=== PATIENT | female | born 1990 | race Two or more races ===

== ENCOUNTER 2021-01-25 23:04 | Emergency (ER) | payer MEDICAID ==
[~2021-01-25] VITALS: Ht 170.2 cm; Wt 62.1 kg
--- NOTE | 2021-01-25 23:30 | NUR ---
Pt. here for abd pain w/ nausea.
[2021-01-25] MEDS ORDERED: ONDANSETRON HCL 4 MG TABLET PO ONE (23:45)
[2021-01-25] MEDS ORDERED: OXYCODONE/APAP 5-325 MG TABLET PO ONE (23:45)
[2021-01-25] MEDS ORDERED: OXYCODONE/APAP 5-325 MG TABLET ONE (23:56)
[2021-01-25] MEDS ORDERED: ONDANSETRON HCL 4 MG TABLET ONE (23:56)
[2021-01-25 23:58] LABS: HEMATOCRIT 41.2 % (31.2-41.9); MEAN CORPUSCULAR HEMOGLOBIN 30.7 uug (24.7-32.8); MEAN CORPUSCULAR VOLUME 89.6 fL (75.5-95.3); PLATELET COUNT (AUTO) 353 K/uL (179-408)
[2021-01-26] LABS: *BILIRUBIN,URIN NEGATIVE (NEGATIVE); *COLOR,URINE YELLOW (YELLOW); *KETONES,URINE NEGATIVE (NEGATIVE); *UROBILINOGEN,URINE 0.2 E.U./dl (NORMAL); LEUKOCYTE ESTERASE ,URINE NEGATIVE (NEGATIVE); NITRITE, URINE NEGATIVE (NEGATIVE); UGLUCOSE NEGATIVE (NEGATIVE)
[2021-01-26 00:02] LABS: CREATININE 0.6 mg/dL (0.6-1.3); POTASSIUM 4.2 mmol/L (3.5-5.1)
[2021-01-26 00:02] LABS: *BLOOD, URINE TRACE (NEGATIVE); *CLARITY,URINE HAZY (CLEAR)
[2021-01-26 00:07] LABS: BILIRUBIN,DIRECT 0.1 mg/dL (0.0-0.2); BILIRUBIN,TOTAL 0.5 mg/dL (0.2-1.0); TOTAL PROTEIN, SERUM 8.4 g/dL (6.4-8.2)
[2021-01-26 00:13] LABS: *URINE HCG, QUAL NEGATIVE (NEGATIVE); BACTERIA,URINE FEW /HPF (NONE SEEN); MUCUS,URINE MODERATE /LPF (0-FEW); SQUAMOUS EPITHELIAL CELL,UR MANY /HPF (NONE SEEN); WBC,URINE 0-3 /HPF (0-3)
[2021-01-26] MEDS ORDERED: MAGNESIUM CITRATE 296 ML BOTTLE PO ONE (02:15)
--- NOTE | 2021-01-26 02:40 | NUR ---
Pt. resting in bed, dozing intermittently. Denies new symptoms. No signs of distress. Will continue to monitor.
[2021-01-26] MEDS ORDERED: MAGNESIUM CITRATE 296 ML BOTTLE ONE (03:00)
[2021-01-26] MEDS ORDERED: BISA10SU61 RC (03:56)
[2021-01-26] MEDS ORDERED: DOCU250C14 PO (03:56)
[2021-01-26] MEDS ORDERED: BISA-79 PO (03:56)
--- NOTE | 2021-01-26 04:36 | NUR ---
Patient discharged to home in stable condition. Written and verbal after care instructions given. Patient verbalizes understanding of instructions. Stressed follow up or return to ER for worsening s/s. Pt walks with steady gait. No signs of distress. All belongings taken.
[2021-01-26 04:40] VITALS: BP 121/88
== END 2021-01-26 04:30 | disposition home or self-care (01) ==
LOC: ER 23:08
DX: R10.11 Right upper quadrant pain (principal); K59.00 Constipation, unspecified; Z90.49 Acquired absence of other specified parts of digestive tract; Z98.890 Other specified postprocedural states
CPT/HCPCS: 36415; 74018; 83690; 84703; 85025; Q0162